=== PATIENT | female | born 1980 | race Caucasian/White ===

== ENCOUNTER 2018-07-10 23:02 | Emergency (ER) | END 2018-07-11 01:37 | disposition home or self-care (01) ==

== ENCOUNTER 2019-02-26 10:57 | Emergency (ER) | payer BC ==
[~2019-02-26] VITALS: Ht 172.7 cm; Wt 145.0 kg
[~2019-02-26 10:57] MED LIST: FERR27TA PO; IBUP-1542 PO; IBUP-1545 PO; PERCOCET PO; PREN1TAB49 PO; PREN1TAB67 PO
[2019-02-26 11:06] VITALS: BP 142/65; PULSE 74; RESP 18; Ht 172.7 cm; Wt 145.0 kg
[2019-02-26] MEDS ORDERED: IBUP800T48 PO (12:44)
[2019-02-26] MEDS ORDERED: CYCL10TA7 PO (12:44)
--- NOTE | 2019-02-26 12:46 | ERD ---
ER Documentation Chief Complaint Chief Complaint pt bib self sent from Clinic with c/o back pain, head pain HPI 38-year-old female who is here with 2 complaints. She was told by urgent care that if she came here we would remove her IUD. Secondarily she is complaining of back pain status post fall that occurred a few days ago. She is ambulatory. No bowel or bladder incontinence. No fever. No nausea or vomiting. ROS All systems reviewed and are negative except as per history of present illness. Medications Home Meds Active Scripts Ibuprofen* (Motrin*) 800 Mg Tab, 800 MG PO Q6, #30 TAB Prov:VELMA MONDRAGON PA-C 02/26/19 Cyclobenzaprine Hcl* (Cyclobenzaprine Hcl*) 10 Mg Tablet, 10 MG PO TID, #15 TAB Prov:VELMA MONDRAGON PA-C 02/26/19 Ibuprofen* (Motrin*) 600 Mg Tab, 600 MG PO Q6H PRN for PAIN AND OR ELEVATED TEMP, #30 TAB Prov:JASON COOK NP 07/11/18 Oxycodone Hcl/Acetaminophen (Percocet) 1 Tab Tab, 2 TAB PO Q4H PRN for PAIN LEVEL 6-10, #30 TAB Prov:SHIRLEY LEVIN MD 05/14/15 Ibuprofen* (Ibuprofen*) 800 Mg Tab, 800 MG PO Q8, #20 TAB Prov:SHIRLEY LEVIN MD 05/14/15 Reported Medications Vits W-Ca,Fe,Fa(<1MG) ( Formula) 1 Each Tablet, 1 EACH PO DAILY 08/02/13 Vits W-Ca,Fe,Fa(<1MG) () 1 Tab Tablet, PO 11/05/11 Ferrous Sulfate (Iron) 1 Tab Tablet, PO 11/05/11 Allergies Allergies: Coded Allergies: No Known Allergy (Verified , 07/10/18) PMhx/Soc History of Surgery: Yes (CHOLECYSTECTOMY,C SECTION X1) Anesthesia Reaction: No Hx Neurological Disorder: No Hx Respiratory Disorders: No Hx Cardiac Disorders: No Hx Psychiatric Problems: No Hx Miscellaneous Medical Probl: No Hx Alcohol Use: No Hx Substance Use: No Hx Tobacco Use: No FmHx Family History: No diabetes Physical Exam Vitals Vital Signs Date Temp Pulse Resp B/P (MAP) Pulse Ox O2 O2 Flow FiO2 Time Delivery Rate 02/26/19 98.3 74 18 142/65 97 11:06 (90) Physical Exam Const: No acute distress Head: Atraumatic Eyes: Normal Conjunctiva ENT: Normal External Ears, Nose and Mouth. Neck: Full range of motion. No meningismus. Resp: Clear to auscultation bilaterally Cardio: Regular rate and rhythm, no murmurs Abd: Soft, non tender, non distended. Back Exam: Compartments: Soft Motor: Normal flexion and extension of bilateral hip/knee/ankle/foot Sensation: Intact to light touch throughout Bones: No midline TTP Procedures/MDM Patient is here with back pain after fall. Exam is normal. Ambulatory neurovascular intact. Low suspicion for bony injury therefore no imaging done. Offered Toradol but she declined. Prescription for ibuprofen and Flexeril given. She is to follow-up with her primary care doctor to get the IUD removed. Patient counseled regarding my diagnostic impression and care plan. Prior to discharge all questions answered. Pt agrees with treatment plan and understands strict return precautions. Pt is instructed to follow up with primary care provider within 24-48 hours. Precautionary instructions provided including instructions to return to the ER if not improving or for any worsening or changing symptoms or concerns. Departure Diagnosis: Primary Impression: Back pain Condition: Stable Patient Instructions: Back Pain (Acute Or Chronic) Additional Instructions: Llame al doctor SIS y charly syed CLAUDIO PARA DENTRO DE 1-2 LOVE.Dgale a la secretaria que nosotros le instruimos hacer esta claudio.Avise o llame si dixon condicin se empeora antes de la claudio. Regresa aqui si peor o no mejor. VELMA MONDRAGON PA-C Feb 26, 2019 12:46
== END 2019-02-26 13:04 | disposition home or self-care (01) ==
LOC: FTE 10:57
DX: M54.9 Dorsalgia, unspecified (principal)
CPT/HCPCS: 99283

== ENCOUNTER 2019-06-10 20:18 | Emergency (ER) | payer BC ==
[~2019-06-10] VITALS: Wt 144.0 kg
[~2019-06-10 20:18] MED LIST changes: +CYCL10TA7 PO; +IBUP800T48 PO
[2019-06-10] MEDS ORDERED: ONDANSETRON 4 MG INJ IV STA (23:39)
[2019-06-10] MEDS ORDERED: SOD CHLORIDE 0.9% 1,000 ML IV STA (23:39)
[2019-06-10] MEDS ORDERED: morphine 2 MG INJ IV STA (23:39)
[2019-06-10] MEDS ORDERED: KETOROLAC 15 MG INJ IV STA (23:39)
[2019-06-11] MEDS ORDERED: ACETAMINOPHEN 325 MG TAB PO ONE
[2019-06-11] MEDS ORDERED: SULF1TAB31 PO (02:56)
[2019-06-11] MEDS ORDERED: ONDA4TAB14 PO (02:57)
[2019-06-11] MEDS ORDERED: CEFTRIAXONE 1 GM/50 ML (PMX) 50 ML IVPB ONE (03:00)
--- NOTE | 2019-06-11 03:13 | ERD ---
ER Documentation Chief Complaint Chief Complaint abdominal pain/dizziness x 1 day HPI This is a 38-year-old Yakut-speaking female with history of C-sections, cholecystectomy and recent gastric bypass surgery who presents to the ED complaining of abdominal pain x1 day. Patient states pain is localized to her lower pelvic region, cramping in quality and progressively worsening since 5 PM today. She reports nausea over 15 episodes of nonbilious, nonbloody emesis. She denies history of similar pain. She is patient does have a fever here. No chest pain or shortness of breath. No vaginal discharge. No other complaints. ROS All systems reviewed and are negative except as per history of present illness. Medications Home Meds Active Scripts Ondansetron (Ondansetron Odt) 4 Mg Tab.rapdis, 4 MG PO Q6H PRN for NAUSEA AND/OR VOMITING, #10 TAB Prov:JAVIER AVILA PA-C 06/11/19 Sulfamethoxazole/Trimethoprim* (Bactrim Ds* Tablet) 1 Each Tablet, 1 TAB PO BID, #14 TAB Prov:JAVIER AVILA PA-C 06/11/19 Ibuprofen* (Motrin*) 800 Mg Tab, 800 MG PO Q6, #30 TAB Prov:VELMA MONDRAGON PA-C 02/26/19 Cyclobenzaprine Hcl* (Cyclobenzaprine Hcl*) 10 Mg Tablet, 10 MG PO TID, #15 TAB Prov:VELMA MONDRAGON PA-C 02/26/19 Ibuprofen* (Motrin*) 600 Mg Tab, 600 MG PO Q6H PRN for PAIN AND OR ELEVATED TEMP, #30 TAB Prov:JASON COOK NP 07/11/18 Oxycodone Hcl/Acetaminophen (Percocet) 1 Tab Tab, 2 TAB PO Q4H PRN for PAIN LEVEL 6-10, #30 TAB Prov:SHIRLEY LEVIN MD 05/14/15 Ibuprofen* (Ibuprofen*) 800 Mg Tab, 800 MG PO Q8, #20 TAB Prov:SHIRLEY LEVIN MD 05/14/15 Reported Medications Vits W-Ca,Fe,Fa(<1MG) ( Formula) 1 Each Tablet, 1 EACH PO DAILY 08/02/13 Vits W-Ca,Fe,Fa(<1MG) () 1 Tab Tablet, PO 11/05/11 Ferrous Sulfate (Iron) 1 Tab Tablet, PO 11/05/11 Allergies Allergies: Coded Allergies: No Known Allergy (Verified , 07/10/18) PMhx/Soc History of Surgery: Yes (CHOLECYSTECTOMY,C SECTION X1, GASTRIC BYPASS) Anesthesia Reaction: No Hx Neurological Disorder: No Hx Respiratory Disorders: No Hx Cardiac Disorders: No Hx Psychiatric Problems: No Hx Miscellaneous Medical Probl: No Hx Alcohol Use: No Hx Substance Use: No Hx Tobacco Use: No Smoking Status: Never smoker FmHx Family History: No diabetes Physical Exam Vitals Vital Signs Date Temp Pulse Resp B/P (MAP) Pulse Ox O2 O2 Flow FiO2 Time Delivery Rate 06/10/19 100.2 88 18 124/76 98 20:23 (92) Physical Exam Const: + Mild distress secondary to pain. Head: Atraumatic Eyes: Normal Conjunctiva ENT: Normal External Ears, Nose and Mouth. Neck: Full range of motion. No meningismus. Resp: Clear to auscultation bilaterally Cardio: Regular rate and rhythm, no murmurs Abd: Soft,+ obese, multiple well-healed scars across the abdomen, diffuse abdominal tenderness palpation, no rebound, no guarding, non distended. Normal bowel sounds Skin: No petechiae or rashes Back: No midline or flank tenderness Ext: No cyanosis, or edema Neur: Awake and alert Psych: Normal Mood and Affect Result Diagram: 06/10/19 2353 06/10/19 2353 Results 24 hrs Laboratory Tests Test 06/10/19 23:53 White Blood Count 6.9 10^3/ul Red Blood Count 4.51 10^6/ul Hemoglobin 10.7 g/dl Hematocrit 34.4 % Mean Corpuscular Volume 76.3 fl Mean Corpuscular Hemoglobin 23.7 pg Mean Corpuscular Hemoglobin Concent 31.1 g/dl Red Cell Distribution Width 17.6 % Platelet Count 236 10^3/UL Mean Platelet Volume 10.3 fl Immature Granulocytes % 0.100 % Neutrophils % 51.8 % Lymphocytes % 30.0 % Monocytes % 10.1 % Eosinophils % 7.9 % Basophils % 0.1 % Nucleated Red Blood Cells % 0.0 /100WBC Immature Granulocytes # 0.010 10^3/ul Neutrophils # 3.6 10^3/ul Lymphocytes # 2.1 10^3/ul Monocytes # 0.7 10^3/ul Eosinophils # 0.5 10^3/ul Basophils # 0.0 10^3/ul Nucleated Red Blood Cells # 0.0 10^3/ul Urine Color WOLFGANG Urine Clarity TURBID Urine pH 5.0 Urine Specific [place] 1.028 Urine Ketones TRACE mg/dL Urine Nitrite NEGATIVE mg/dL Urine Bilirubin NEGATIVE mg/dL Urine Urobilinogen NEGATIVE mg/dL Urine Leukocyte Esterase 2+ Prasad/ul Urine Microscopic RBC 22 /HPF Urine Microscopic WBC 174 /HPF Urine Squamous Epithelial Cells MANY /HPF Urine Bacteria FEW /HPF Urine Mucus MANY /HPF Urine Hemoglobin 3+ mg/dL Urine Glucose NEGATIVE mg/dL Urine Total Protein 3+ mg/dl Sodium Level 141 mmol/L Potassium Level 3.7 mmol/L Chloride Level 107 mmol/L Carbon Dioxide Level 24 mmol/L Anion Gap 10 Blood Urea Nitrogen 11 mg/dl Creatinine 0.87 mg/dl Est Glomerular Filtrat Rate mL/min > 60 mL/min Glucose Level 99 mg/dl Calcium Level 9.2 mg/dl Total Bilirubin 0.5 mg/dl Direct Bilirubin 0.00 mg/dl Indirect Bilirubin 0.5 mg/dl Aspartate Amino Transf (AST/SGOT) 33 IU/L Alanine Aminotransferase (ALT/SGPT) 52 IU/L Alkaline Phosphatase 71 IU/L Total Protein 7.2 g/dl Albumin 3.7 g/dl Globulin 3.50 g/dl Albumin/Globulin Ratio 1.05 Lipase 58 U/L Serum HCG, Qualitative NEGATIVE Current Medications Medications Dose Sig/Maame Start Time Status Last (Trade) Ordered Route PRN Stop Time Admin Dose Reason Admin Sodium 1,000 ml @ Q1H STAT 06/10/19 DC 06/11/19 Chloride 1,000 mls/hr IV 23:39 00:07 06/11/19 00:38 Morphine 2 mg ONCE STAT 06/10/19 DC 06/11/19 Sulfate IV 23:39 00:07 (morphine) 06/10/19 23:42 Ondansetron 4 mg ONCE STAT 06/10/19 DC 06/11/19 HCl (Zofran IV 23:39 00:07 Inj) 06/10/19 23:42 Ketorolac 15 mg ONCE STAT 06/10/19 DC 06/11/19 Tromethamine IV 23:39 00:31 (Toradol) 06/10/19 23:42 650 mg ONCE ONCE 06/11/19 DC 06/11/19 Acetaminophen PO 00:00 00:07 (Tylenol 06/11/19 00:01 Tab) Ceftriaxone 50 ml @ ONCE ONCE 06/11/19 Sodium 100 mls/hr IVPB 03:00 06/11/19 03:29 Procedures/MDM LABS & DIAGNOSTIC IMAGING: CBC: mild anemia w/ H&H of 107, 34.4 CMP: no e/o severe acidosis, alkalosis, renal failure, diabetic ketoacidosis, liver disease The patient's lipase is normal and indicative of no pancreatitis. Urine: 2+ leuk esterase w/ hematuria and pyuria Upreg: neg PROCEDURE: CT Abdomen and Pelvis without contrast. CLINICAL INDICATION: Abdominal pain, recent gastric bypass IMPRESSION: 1. No acute inflammatory process or evidence of bowel obstruction. 2. Changes related to gastric surgery. 3. Mild colonic diverticulosis. 4. IUD in place, position appears suboptimal with crossed T-arms in vertically rather than horizontally oriented position. ED COURSE: The patient was given IV fluids, morphine, Zofran, Toradol, ceftriaxone The medication was well tolerated and the patient had market improvement in symptoms. The patient remained stable throughout ED course. MEDICAL DECISION MAKING: This is a 38-year-old female with history of gastric bypass surgery, C-sections, and cholecystectomy who presents with abdominal pain, vomiting and fever. UA is positive for urinary infection. We will treat this as pyelonephritis. Patient was given 1 g of ceftriaxone here and discharged home with outpatient antibiotics. She had no further vomiting episodes here in the department. She does have mild anemia on CBC with a hemoglobin of 10. There is no active bleeding, patient is hemodynamically stable and does not require blood transfusion at this time. Patient was discharged home in stable condition with PCP follow-up and strict return precautions. PRESCRIPTIONS: Bactrim, Zofran SPECIALIST FOLLOW UP RECOMMENDED: None Patient has been advised to follow up with primary care in 1-2 days. Departure Diagnosis: Primary Impression: Pyelonephritis Condition: Stable Patient Instructions: Pyelonephritis, Female (Adult) [facility]errals[facility] Usted se garcia hecho un examen mdico de control que le indica que no est en syed condicin que requiera tratamiento urgente en el Departamento de Emergencia. Un estudio ms profundo y el tratamiento de dixon condicin pueden esperar sin ningn riesgo hasta que usted sea atendida/o en el consultorio de dixon mdico o syed clni ca. Es responsabilidad suya arreglar syed jessica para el seguimiento del nicolas. MANEJO DE CONDICIONES NO URGENTES EN EL FUTURO 1) Si usted tiene un mdico de atencin primaria: Usted debera llamar a dixon mdico de atencin primaria antes de venir al departamento de emergencia. Despus de las horas de consultorio, dixon doctor o dixon asociado/a est disponible por telfono. El mdico o enfermero de louie en el servicio telefnico puede asesorarle por alexandrea medio para atender el problema, o nicolas contrario se puede programar syed jessica. 2) Si usted no tiene un mdico de atencin primaria: Llame al mdico o clnica de referencia que aparece abajo toni las horas de consultorio para hacer syed jessica para que le vean. CLINICAS: [facility] [phone] [facility] [phone] [address] [facility]. [facility] [phone] [address] [facility]. [place] [id number] [phone] [facility]. [place] [id number] [phone] [facility]. [phone] [facility] () Usted se garcia hecho un examen mdico de control que le indica que no est en syed condicin que requiera tratamiento urgente en el Departamento de Emergencia. Un estudio ms profundo y el tratamiento de dixon condicin pueden esperar sin ningn riesgo hasta que usted sea atendida/o en el consultorio de dixon mdico o syed clnica. Es responsabilidad suya arreglar syed jessica para el seguimiento del nicolas. MANEJO DE CONDICIONES NO URGENTES EN EL FUTURO 1) Si usted tiene un mdico de atencin primaria: Usted debera llamar a dixon mdico de atencin primaria antes de venir al departamento de emergencia. Despus de las horas de consultorio, dixon doctor o dixon asociado/a est disponible por telfono. El mdico o enfermero de louie en el servicio telefnico puede asesorarle por alexandrea medio para atender el problema, o nicolas contrario se puede programar syed jessica. 2) Si usted no tiene un mdico de atencin primaria: Llame al mdico o condado institucions de referencia que aparece abajo toni las horas de consultorio para hacer syed jessica para que le vean. SI USTED NO PUEDE PAGAR PARA AZ UN MEDICO puede ir a: [facility] [address] [place], [place] [id number] [place] [address] [address] [place] [address] [facility] [address] [place] [address] [address]A [facility] [address] [place] [address] Additional Instructions: Paciente aconseja volver a Departamento de urgencias inmediatamente para sntomas nuevos o que empeoran . Paciente aconseja posteriores con el PCP en 1-2 bacon. Si el paciente no tiene ninguna de atencin primaria pueden seguir con [facility] [address] [place] [address] o [facility] [address] [place] [id number] JAVIER AVILA PA-C Jun 11, 2019 03:13
[2019-06-11 04:02] VITALS: BP 99/57; PULSE 60; RESP 18
== END 2019-06-11 04:04 | disposition home or self-care (01) ==
LOC: FTE 20:18
DX: N12 Tubulo-interstitial nephritis, not specified as acute or chronic (principal); R10.2 Pelvic and perineal pain
CPT/HCPCS: 36415; 74176; 80053; 81001; 83690; 84703; 85025; 96361; 96365; 96375; 99285; J0696; J1885; J2270; J2405; J7030; Z7610